=== PATIENT | female | born 1950 | race Caucasian/White ===

== ENCOUNTER 2017-05-11 12:04 | Emergency (ER) | payer MEDICARE, BC ==
[2017-05-11 12:46] VITALS: RESP 20
[2017-05-11] MEDS ORDERED: Albuterol-Ipratrop 3 mg / 0.5 (3 ml) UD IH STA ×2 (13:15→15:05)
[2017-05-11 13:45] LABS: BASO % 0.9 % (0.0-2.0); EOS # 0.8 K/uL (0.0-0.7); EOS % 15.5 % (0.0-4.0); HEMOGLOBIN 13.9 g/dL (11.0-16.0); LYMPH # 1.3 K/uL (1.0-4.3); LYMPH % 25.3 % (20.0-40.0); MEAN CELL VOLUME 88.2 fL (81.0-99.0); MEAN CORPUSCULAR HEMOGLOBIN 28.9 pg (27.0-31.0); MEAN CORPUSCULAR HGB CONC 32.8 g/dL (33.0-37.0); MEAN PLATELET VOLUME 8.3 fL (7.2-11.7); MONO # 0.3 K/uL (0.0-0.8); MONO % 6.6 % (0.0-10.0); NEUT # 2.6 K/uL (1.8-7.0); NEUT % 51.7 % (50.0-75.0); RBC 4.8 Mil/uL (3.80-5.20); RED CELL DISTRIBUTION WIDTH 15.1 % (11.5-14.5); WHITE BLOOD COUNT 5.1 K/uL (4.8-10.8)
[2017-05-11] MEDS ORDERED: Albuterol-Ipratrop 3 mg / 0.5 (3 ml) UD ONE ×2 (13:57→15:09)
--- NOTE | 2017-05-11 14:05 | C.PDOC ---
Time Seen by Provider: 05/11/17 13:08 Chief Complaint (Nursing): Shortness Of Breath History Per: Patient Onset/Duration Of Symptoms: Days (about 2 weeks) Current Symptoms Are (Timing): Still Present Current Respiratory Medications: See Home Med List, Albuterol Severity: Moderate Additional History Per: Prior Records Past Medical History Reviewed: Historical Data, Nursing Documentation, Vital Signs Vital Signs: Last Vital Signs Temp 98.2 F 05/11/17 12:09 Pulse 93 H 05/11/17 12:09 Resp 20 05/11/17 12:34 BP 154/101 H 05/11/17 12:09 Pulse Ox 95 05/11/17 15:05 - Medical History PMH: Emphysema, Gastritis - [facility] Procedures CLOSED ENDOSCOPIC BIOPSY OF LARGE INTESTINE (04/10/05) ENDO EXCISION/DEST OF LESION OR TISSUE OF STOMACH (02/08/06) ESOPHAGOGASTRODUODENOSCOPY [EGD] W/CLOSED BIOPSY (06/16/07) Family History: States: Unknown Family Hx - Social History Hx Tobacco Use: No (quit years ago) Hx Alcohol Use: Yes Hx Substance Use: No Review Of Systems Except As Marked, All Systems Reviewed And Found Negative. Constitutional: Negative for: Fever, Weakness ENT: Negative for: Nose Congestion, Throat Pain Cardiovascular: Negative for: Chest Pain Respiratory: Positive for: Cough, Shortness of Breath, Wheezing. Negative for: Hemoptysis Gastrointestinal: Negative for: Vomiting, Abdominal Pain Musculoskeletal: Negative for: Neck Pain, Back Pain, Leg Pain Skin: Negative for: Rash Neurological: Negative for: Weakness, Numbness, Seizures, Altered Mental Status Physical Exam - Physical Exam Appears: Non-toxic, No Acute Distress Skin: Normal Color, Warm, Dry, No Rash Head: Atraumatic, Normacephalic Eye(s): bilateral: Normal Inspection, PERRL, EOMI Neck: Normal ROM, Supple Cardiovascular: Rhythm Regular Respiratory: No Accessory Muscle Use, Wheezing Gastrointestinal/Abdominal: Soft, No Tenderness Back: No CVA Tenderness Extremity: Normal ROM, No Pedal Edema, No Calf Tenderness Neurological/Psych: Oriented x3, Normal Speech, Normal Motor, Normal Sensation ED Course And Treatment - Laboratory Results Result Diagrams: 05/11/17 13:39 05/11/17 14:03 Lab Interpretation: No Acute Changes ECG: Interpreted By Me, Viewed By Me ECG Rhythm: Sinus Rhythm ECG Interpretation: No Acute Changes Rate From EC O2 Sat by Pulse Oximetry: 95 Pulse Ox Interpretation: Normal - Radiology CXR: Viewed By Me, Read By Radiologist CXR Interpretation: Yes: No Acute Disease Progress Note: Pt feels much better and wanst to go home. No SOB or MARQUEZ. Lungs clear. Reassessment Condition: Improved Progress - Interventions Interventions:: Observation - Medications Administered Inhaled nebulized: Anticholinergic, Beta-2 agonist Intravenous: Corticosteroid - Data Reviewed Data Reviewed: Lab, Diagnostic imaging, EKG, Old records - Patient Status Patient status: Mostly improved - Continuity of Care Discussed patient case with:: Patient, ED Nurse - Patient Plan Patient Plan: Discharge, F/U with PCP, Continue present meds Disposition Counseled Patient/Family Regarding: Studies Performed, Diagnosis, Need For Followup, Rx Given - Disposition Referrals: Rob Whitmore MD [Staff Provider] - Disposition: HOME/ ROUTINE Disposition Time: 15:32 Condition: IMPROVED Additional Instructions: Follow up with your doctor within 2 days for further evaluation and treatment. Return to the ER if you develop fever, shortness of breath, chest pain, worsening of symptoms or if you have any other concerns. Prescriptions: Albuterol 0.083% [Albuterol Sulfate 3 Ml] 3 ml IH Q4 PRN #100 neb PRN Reason: Wheezing predniSONE [predniSONE Tab] 2 tab PO DAILY #10 tab Instructions: COPD (Chronic Obstructive Pulmonary Disease) (ED) - Clinical Impression Clinical Impression: COPD exacerbation
--- NOTE | 2017-05-11 14:12 | RAD ---
HISTORY: SOB COMPARISON: 06/18/2016 TECHNIQUE: Chest PA and lateral FINDINGS: LUNGS: No active pulmonary disease. PLEURA: No significant pleural effusion identified. No pneumothorax apparent. CARDIOVASCULAR: Normal. OSSEOUS STRUCTURES: No significant abnormalities. VISUALIZED UPPER ABDOMEN: Normal. OTHER FINDINGS: A mild hiatal hernia is again encountered at the inferior mediastinum at the midline. . IMPRESSION: No acute cardiopulmonary is encounter. A mild hiatal hernia is again appreciated. No significant interval change.
[2017-05-11 14:18] LABS: GFR AFRICAN-AMERICAN > 60; GFR NON-AFRICAN AMERICAN > 60
[2017-05-11 14:19] LABS: ALB/GLOB RATIO 1.2 (1.0-2.1); ALT/SGPT 30 U/L (9-52); AST/SGOT 27 U/L (14-36); BLOOD UREA NITROGEN 13 mg/dL (7-17); CALCIUM 8.5 mg/dl (8.6-10.4); MAGNESIUM 2.3 mg/dL (1.6-2.3)
[2017-05-11 14:28] LABS: B-TYPE NATRIURETIC PEPTIDE 72.9 pg/mL (0-900)
[2017-05-11 15:58] VITALS: BP 146/100; PULSE 98; TEMP 98.5; O2SAT 96
--- NOTE | 2017-05-13 16:01 | CARD ---
APPROVED REPORT EKG Measurement Heart [id number] NM [id number] <Conclusion> Normal sinus rhythm Normal ECG
== END 2017-05-11 15:56 | disposition home or self-care (01) ==
LOC: C.ER 12:04
DX: J44.1 Chronic obstructive pulmonary disease with (acute) exacerbation (principal); Z87.891 Personal history of nicotine dependence
CPT/HCPCS: 71020; 80053; 83735; 83880; 84484; 85025; 93005; 94150; 94640; 96374; 99283; J2930